=== PATIENT | female | born 1950 | race Caucasian/White ===

== ENCOUNTER 2017-02-24 09:06 | Emergency (ER) | payer MEDICARE, OTHER ==
[2017-02-24] MEDS ORDERED: ONDANSETRON HCL/PF 2 MG/ML VIAL ONE (09:10)
[2017-02-24] MEDS ORDERED: ONDANSETRON HCL/PF 2 MG/ML VIAL IV ONE (09:12)
[2017-02-24] MEDS ORDERED: DIAZEPAM 5 MG/ML SYRG IV ONE (09:31)
[2017-02-24] MEDS ORDERED: DIAZEPAM 5 MG/ML SYRG ONE (09:37)
[2017-02-24 09:45] LABS: Hemoglobin 14.2 gm/dL (12.5-16.0); Mean Cell Volume 89.9 fl (78-100); Mean Corpuscular Hemoglobin 30.4 pg (27-31); Mean Corpuscular Hgb Conc 33.8 g/dl (32-36); Mean Platelet Volume 10.8 fl (6.0-9.5); Neutrophil % 51.6 % (42-75.0); Platelet Count 238 K/mm3 (150-450); Red Blood Count 4.67 M/mm3 (4.2-5.4); Red Cell Distribution Width 13.1 % (11.5-14.0); White Blood Count 7.8 K/mm3 (4.0-10.5)
[2017-02-24 09:57] LABS: Albumin * 3.7 gm/dl (3.4-5.0); Anion Gap 13.4 mmol/L (6.8-13.8); BUN/Creatinine Ratio 20.8 (9.0-21.6); Bilirubin, Total 0.3 mg/dL (0.0-1.1); Ca. Corrected For Albumin 9.2 mg/dL (8.4-10.2); Calcium * 9.3 mg/dL (7.9-10.9); Carbon Dioxide 26.7 mmol/L (24-32.6); Magnesium 1.8 mg/dL (1.2-2.8); Potassium 4.1 mmol/L (3.4-4.6); Total Protein 6.7 gm/dL (6.2-8.2)
[2017-02-24] MEDS ORDERED: MECLIZINE HCL 25 MG TABLET ONE (11:47)
[2017-02-24] MEDS ORDERED: MECLIZINE HCL 25 MG TABLET PO ONE (11:51)
[2017-02-24 12:05] VITALS: BP 140/71
--- NOTE | 2017-02-24 12:43 | ERNOTE ---
Syncope ER HPI Stated Complaint: SYNCOPE Time Seen by Provider: 02/24/17 09:19 Source: patient Exam Limitations: no limitations Immunizations: IMMUNIZATION HX Immunizations Up to Date Yes History of Influenza Vaccine No Hx Pneumococcal Vaccination No Allergies/Adverse Reactions: Allergies codeine Adverse Reaction (Mild, Verified 02/24/17 09:20) RASH Sulfa (Sulfonamide Antibiotics) Adverse Reaction (Mild, Verified 02/24/17 09:20) Itching Home Medications: HOME MEDICATIONS Aspirin [Aspirin Enteric Coated] 325 mg PO PRN PRN 06/06/15 [Last Taken Unknown] Calcium Carbonate/Vitamin D3 [Calcium 500 + Vit D3 400 Tab] 1 each PO DAILY [Last Taken Unknown] Glucosamine HCl 500 mg PO DAILY 06/06/15 [Last Taken Unknown] Multivitamin with Minerals [Hair, Skin & Nails] 1 each PO DAILY 06/06/15 [Last Taken Unknown] Multivitamins [Multivitamin Rizwan] 1 cap PO DAILY 06/06/15 [Last Taken Unknown] Soy Protein [Ultramino] 480 gm PO DAILY 06/06/15 [Last Taken Unknown] Meclizine HCl [Antivert] 25 mg PO TID #42 tab 02/24/17 [Last Taken Unknown] Ondansetron [Zofran Odt] 4 mg PO Q6H PRN #20 tab 02/24/17 [Last Taken Unknown] - History of Present Illness Narrative: Patient has been suffering from vertigo for the past 3-4 months. Today she had an even worse episode where she became severely vertiginous and had an episode of emesis. Patient was brought over from a local doctor's office here for treatment. Prior Episodes: Present: multiple episodes today, recent history Symptoms prior to episode: Present: nausea Activity at time of episode: Present: standing Character of event: Present: no loss of consciousness Location of Injury: Present: none Current Symptoms: Present: dizziness Prior Treament: Reports: recently seen, treated by physician Review of Systems - Review of Systems Constitutional: Present: See HPI EYE: Present: no symptoms reported ENT: Present: no symptoms reported Respiratory: Present: no symptoms reported Cardiology: Present: no symptoms reported Gastrointestinal/Abdominal: Present: no symptoms reported Genitourinary: Present: no symptoms reported Musculoskeletal: Present: no symptoms reported Skin: Present: no symptoms reported Neurological: Present: dizziness/light-headedness Endocrine: Present: no symptoms reported Hematologic/Lymphatic: Present: no symptoms reported Psych: Present: no symptoms reported - Patient's Past Medical History Patient History - Medical: Headache, Other - Vertigo Patient History - Cardiac/Respiratory: No pertinent hx Patient History - Cancer: No Hx of Cancer Patient History - Surgical Procedures: Cholecystectomy, Hysterectomy, ENT Patient History - Other: None LMP (females 10-50): Menopausal - Social History Living Situations: home Abuse History: No History of abuse Psych History: No pertinent hx Smoking Status: Never smoker Alcohol Use: occasionally Drug Use: none - Immunizations Immunizations Up to Date: Yes Hx Pneumococcal Vaccination: No History of Influenza Vaccine: No Physical Exam - Physical Exam General Appearance: Present: wd/wn, alert, moderate distress Eye Exam: Normal inspection: bilateral, PERRL: bilateral Ears, Nose, Throat: Present: abnormal TM (R), normal pharynx Neck: Present: normal inspection, nontender Respiratory: Present: no respiratory distress, normal breath sounds, no accessory muscle use, chest nontender, lungs clear Cardiovascular/Chest: Present: regular rate, rhythm, no murmur, normal peripheral pulses Gastrointestinal/Abdominal: Present: normal bowel sounds, nontender, nondistended, soft, no organomegaly Rectal Exam: Present: deferred Back Exam: Present: normal inspection, normal range of motion Extremity Exam: Present: normal inspection, non-tender, no edema, normal range of motion Neurological Exam: Present: alert, oriented, normal mood/affect, other - negative HINTS exam Skin Exam: Present: normal color, warm/dry Lymphatic Exam: Present: no adenopathy ED Progress - Results and Orders Patient's Lab Results:: I have reviewed the patient's lab results. - Vital Signs Patient's Vital Signs:: I have reviewed the patient's vital signs. Vital Signs: Vital Signs 02/24/17 02/24/17 02/24/17 09:12 09:14 10:13 Temperature 36.3 C L Pulse Rate 56 L 52 L 51 L Respiratory 17 17 Rate Blood Pressure 163/79 135/66 O2 Sat by Pulse 97 93 Oximetry 02/24/17 02/24/17 02/24/17 10:42 11:36 12:04 Temperature Pulse Rate 56 L 53 L 52 L Respiratory 15 15 13 Rate Blood Pressure 138/61 144/67 140/71 O2 Sat by Pulse 97 98 98 Oximetry - CT/Ultrasound CT/Ultrasound Narrative: CT results were reviewed - Progress/Reassessment Chief Complaint: Syncopal Episode Plan - Plan Plan: Patient appears to have a serous otitis media on the right side which could be contributing to her vertigo. Patient had minimal relief from the IV Valium however 25 mg of Antivert work significantly. Patient will be started on both Antivert and Zofran ODT at home and she will try to get another ENT appointment for further investigation of the ear. Departure Clinical Impression: Vertigo - Departure Disposition: Home self-care Condition: Good Instructions: Vertigo, [id number] Referrals: Jasiel Pizano MD [Primary Care Provider] - Prescriptions: Meclizine HCl [Antivert] 25 mg PO TID #42 tab Ondansetron [Zofran Odt] 4 mg PO Q6H PRN #20 tab PRN Reason: Nausea And Vomiting
== END 2017-02-24 12:50 | disposition home or self-care (01) ==
LOC: ER 09:06
DX: R42 Dizziness and giddiness (principal)
CPT/HCPCS: 36415; 70450; 80053; 83735; 85025; 96374; 96375; 99284; J2405

== ENCOUNTER 2017-04-05 16:10 | Emergency (ER) | payer MEDICARE, OTHER ==
[2017-04-05 16:19] VITALS: BP 162/90
== END 2017-04-05 16:20 | disposition home or self-care (01) ==
LOC: ER 16:10
DX: Z53.21 Procedure and treatment not carried out due to patient leaving prior to being seen by health care provider (principal)